=== PATIENT | female | born 2000 | race Caucasian/White ===

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

== ENCOUNTER 2023-02-11 11:12 | Emergency (ER) | payer OTHER ==
[2023-02-11 11:25] VITALS: BP 123/70; PULSE 89; RESP 20; TEMP 98.7; BMI 30.2
[2023-02-11] MEDS ORDERED: ACETAMINOPHEN 325 MG TABLET (FP) PO ONE (12:44)
[2023-02-11] MEDS ORDERED: ACETAMINOPHEN 325 MG TABLET (FP) ONE (12:50)
[2023-02-11 13:26] LABS: BASO % 0.9 % (0-2.0); EOS % 1.1 % (0-4.5); HEMATOCRIT 39.7 % (32.4-45.2); HEMOGLOBIN 13.4 GM/dL (10.7-15.3); LYMPH % 31.7 % (8-40); MCHC 33.8 g/dl (32.0-36.0); MEAN CELL VOLUME 85.8 fl (80-96); MEAN PLT VOLUME 8.9 fl (7.5-11.1); MONO % 7.3 % (3.8-10.2); PLATELET COUNT 228 10^3/uL (134-434); RBC 4.62 M/mm3 (3.60-5.2); RDW 13.6 % (11.6-15.6); WHITE BLOOD COUNT 5.2 K/mm3 (4.0-10.0)
[2023-02-11 13:48] LABS: EPI CELLS >36 /uL (0-25.1); HYALINE CASTS 2 /uL (0-3.1); PH,URINE 5.5 (5.0-8.0); URINE APPEARANCE CLOUDY; URINE BACTERIA 454 /uL (0-1359); URINE BILIRUBIN NEGATIVE (NEGATIVE); URINE COLOR YELLOW; URINE GLUCOSE (UA) NEGATIVE (NEGATIVE); URINE KETONE NEGATIVE (NEGATIVE); URINE LEUK ESTERASE NEGATIVE (NEGATIVE); URINE NITRITE NEGATIVE (NEGATIVE); URINE PROTEIN NEGATIVE (NEGATIVE); URINE RBC 18 /uL (0-23.9); URINE UROBILINOGEN 0.2 mg/dL (0.2-1.0); URINE WBC 37 /uL (0-25.8)
[2023-02-11 14:05] LABS: CHLORIDE 108 mmol/L (98-107); POTASSIUM 4.3 mmol/L (3.5-5.1); SODIUM 138 mmol/L (136-145)
[2023-02-11 14:08] LABS: CALCIUM 9.1 mg/dL (8.5-10.1)
[2023-02-11 14:09] LABS: ALBUMIN 3.6 g/dl (3.4-5.0); ANION GAP 6 MMOL/L (8-16); BLOOD UREA NITROGEN 9.9 mg/dL (7-18); CO2 25 mmol/L (21-32); GLUCOSE,RANDOM 69 mg/dL (74-106)
[2023-02-11 14:12] LABS: CREATININE 0.8 mg/dL (0.55-1.3); SGOT/AST 27 U/L (15-37); SGPT/ALT 32 U/L (13-61)
[2023-02-11 14:13] LABS: BILIRUBIN,TOTAL 0.6 mg/dL (0.2-1)
[2023-02-11 14:14] LABS: TOT PROT 7.4 g/dl (6.4-8.2)
[2023-02-11 14:15] LABS: ALK PHOS 69 U/L (45-117)
== END 2023-02-11 19:04 | disposition home or self-care (01) ==
LOC: JER 11:12
DX: R10.32 Left lower quadrant pain (principal); N64.4 Mastodynia
CPT/HCPCS: 36415; 76830-TC; 80053; 81003; 84702; 85025; 87086; 99284-25

== ENCOUNTER 2023-02-26 17:49 | Emergency (ER) | payer OTHER ==
[2023-02-26 18:07] VITALS: BP 109/68; PULSE 93; RESP 18; TEMP 98.1; BMI 31.8
[2023-02-26 20:51] LABS: EPI CELLS >36 /uL (0-25.1); HYALINE CASTS 2 /uL (0-3.1); PH,URINE 6.5 (5.0-8.0); URINE APPEARANCE CLOUDY; URINE BACTERIA 1511 /uL (0-1359); URINE BILIRUBIN NEGATIVE (NEGATIVE); URINE COLOR YELLOW; URINE GLUCOSE (UA) NEGATIVE (NEGATIVE); URINE KETONE 1+ (NEGATIVE); URINE LEUK ESTERASE 3+ (NEGATIVE); URINE NITRITE NEGATIVE (NEGATIVE); URINE PROTEIN NEGATIVE (NEGATIVE); URINE RBC 24 /uL (0-23.9); URINE UROBILINOGEN 0.2 mg/dL (0.2-1.0); URINE WBC 263 /uL (0-25.8)
== END 2023-02-26 23:59 | disposition home or self-care (01) ==
LOC: JER 17:49
DX: O23.41 Unspecified infection of urinary tract in pregnancy, first trimester (principal); O99.891 Other specified diseases and conditions complicating pregnancy; N83.202 Unspecified ovarian cyst, left side; O26.891 Other specified pregnancy related conditions, first trimester; R10.30 Lower abdominal pain, unspecified; Z3A.01 Less than 8 weeks gestation of pregnancy
CPT/HCPCS: 36415; 76830-TC; 81003; 84703; 87077; 87086; 87491; 87591; 99284-25

== ENCOUNTER 2023-10-24 16:54 | Inpatient (IN) | payer OTHER ==
[2023-10-24 18:46] VITALS: BMI 31.8
[2023-10-24 18:47] LABS: BASO % 0.2 % (0-2.0); HEMATOCRIT 42.7 % (32.4-45.2); HEMOGLOBIN 14.3 GM/dL (10.7-15.3); LYMPH % 10.5 % (8-40); MCH 28.5 pg (25.7-33.7); MCHC 33.6 g/dl (32.0-36.0); MEAN CELL VOLUME 84.8 fl (80-96); MEAN PLT VOLUME 8.3 fl (7.5-11.1); MONO % 3.3 % (3.8-10.2); PLATELET COUNT 212 10^3/uL (134-434); RBC 5.03 M/mm3 (3.60-5.2); WHITE BLOOD COUNT 10.1 K/mm3 (4.0-10.0)
[2023-10-24 18:54] LABS: INR 0.92 (0.83-1.09); PROTHROMBIN TIME (PATIENT) 10.7 SEC (9.7-13.0)
[2023-10-24 18:57] LABS: ACTIVATED PTT 29.6 SECONDS (25.2-36.5)
[2023-10-24] MEDS ORDERED: ELECTROLYTE-148 SOLN 1,000 ML IV SCH (19:00)
[2023-10-24 19:06] LABS: POTASSIUM 3.9 mmol/L (3.5-5.1)
[2023-10-24 19:08] LABS: CALCIUM 9.3 mg/dL (8.5-10.1)
[2023-10-24 19:09] LABS: BLOOD UREA NITROGEN 7.3 mg/dL (7-18)
[2023-10-24] MEDS ORDERED: FENTANYL/BUPIVACAINE/NS/PF - PCEA - 50 ML DISP.SYRIN EP ONE ×2 (19:11→22:46)
[2023-10-24 19:12] LABS: CREATININE 0.6 mg/dL (0.55-1.3)
[2023-10-24] MEDS: FENTANYL/BUPIVACAINE/NS/PF - PCEA - 50 ML DISP.SYRIN EP SCH ×2 (19:40→22:50)
[2023-10-24] MEDS ORDERED: NALOXONE HCL 0.4 MG/ML VIAL IVPUSH PRN (19:52)
[2023-10-24] MEDS ORDERED: OXYTOCIN 30 UNITS in 0.9% NS 30 UNIT/500 ML INFUS.BAG IVPB ONE (23:42)
[2023-10-24] MEDS ORDERED: OXYTOCIN 30 UNITS in 0.9% NS 30 UNIT/500 ML INFUS.BAG IVPB SCH (23:45)
[2023-10-25] MEDS ORDERED: FENTANYL/BUPIVACAINE/NS/PF - PCEA - 50 ML DISP.SYRIN EP ONE (01:22)
[2023-10-25] MEDS: FENTANYL/BUPIVACAINE/NS/PF - PCEA - 50 ML DISP.SYRIN EP SCH (01:40)
[2023-10-25] MEDS ORDERED: LIDOCAINE HCL 1% PRESERVATIVE FREE - 30ML VIAL ONE (02:57)
[2023-10-25] MEDS ORDERED: OXYTOCIN 20 UNITS in 0.9% NS 20 UNIT/1,000 ML INFUS.BAG IV ONE (02:57)
[2023-10-25] MEDS ORDERED: AMPICILLIN SODIUM 2 GM VIAL ONE (04:22)
[2023-10-25] MEDS ORDERED: WITCH HAZEL 50% (TUCKS) 40 PAD/JAR PAD TP PRN (05:17)
[2023-10-25] MEDS ORDERED: METHYLERGONOVINE MALEATE 0.2 MG/1 ML AMP IM ONE (05:17)
[2023-10-25] MEDS ORDERED: BENZOCAINE 20% 57 GM BOTTLE TP PRN (05:17)
[2023-10-25] MEDS ORDERED: METHYLERGONOVINE MALEATE 0.2 MG/1 ML AMP IM PRN (05:17)
[2023-10-25] MEDS ORDERED: ACETAMINOPHEN 325 MG TABLET (FP) PO PRN (05:17)
[2023-10-25] MEDS ORDERED: oxyCODONE HCL 5 MG TABLET PO PRN (05:17)
[2023-10-25] MEDS ORDERED: BENZOCAINE 28 GM HEMORRHOIDAL OINTMENT TP PRN (05:17)
[2023-10-25] MEDS ORDERED: BISACODYL 10 MG SUPP.RECT RC PRN (05:17)
[2023-10-25] MEDS ORDERED: AMPICILLIN - 2 GM in SODIUM CHLORIDE 100 ML IVPB ONE (05:18)
[2023-10-25] MEDS ORDERED: OXYTOCIN 20 UNITS in 0.9% NS 20 UNIT/1,000 ML INFUS.BAG IV SCH (05:30)
[2023-10-25] MEDS ORDERED: IBUPROFEN 600 MG TABLET (FP) PO ONE (06:03)
[2023-10-25] MEDS: IBUPROFEN 600 MG TABLET (FP) PO PRN ×3 (06:05→20:36)
[2023-10-25 06:32] LABS: CORD BASE EXCESS -7.5 mmol/L (0-2); CORD HCO3 20.3 mmHg (20-29); CORD PCO2 48.9 mmHg (30-78); CORD pH 7.236 (7.14-7.44)
[2023-10-25 06:48] LABS: CORD BASE EXCESS -9.5 mmol/L (0-2); CORD HCO3 20.3 mmHg (20-29); CORD PCO2 60.3 mmHg (30-78); CORD pH 7.146 (7.14-7.44)
[2023-10-25] MEDS: DOCUSATE SODIUM 100 MG CAPSULE (FP) PO SCH (09:23)
[2023-10-26] MEDS: IBUPROFEN 600 MG TABLET (FP) PO PRN ×4 (01:06→19:25)
[2023-10-26 08:15] LABS: BASO % 0.5 % (0-2.0); EOS % 0.6 % (0-4.5); HEMATOCRIT 35.7 % (32.4-45.2); HEMOGLOBIN 11.7 GM/dL (10.7-15.3); LYMPH % 19.9 % (8-40); MCH 28.6 pg (25.7-33.7); MCHC 32.8 g/dl (32.0-36.0); MEAN CELL VOLUME 87.1 fl (80-96); MEAN PLT VOLUME 8.3 fl (7.5-11.1); MONO % 5.3 % (3.8-10.2); NEUT % 73.7 % (42.8-82.8); PLATELET COUNT 172 10^3/uL (134-434); RDW 14.1 % (11.6-15.6); WHITE BLOOD COUNT 9.1 K/mm3 (4.0-10.0)
[2023-10-26 09:35] VITALS: RESP 18
[2023-10-26] MEDS: DOCUSATE SODIUM 100 MG CAPSULE (FP) PO SCH (10:01)
[2023-10-26] MEDS ORDERED: SENNOSIDES/DOCUSATE COMBO (SENNA PLUS) TABLET (UD) PO PRN (22:00)
[2023-10-27] MEDS: IBUPROFEN 600 MG TABLET (FP) PO PRN ×2 (00:06→09:18)
[2023-10-27] MEDS: DOCUSATE SODIUM 100 MG CAPSULE (FP) PO SCH (09:18)
[2023-10-27 11:27] VITALS: BP 120/75; PULSE 76; TEMP 98.2
== END 2023-10-27 13:30 | disposition home or self-care (01) | DRG 560 ==
LOC: JDEL 16:54 → JLDR 18:15 → J3W 10-25 08:15
PROVIDERS: ADMIT Obstetrics & Gynecology; ATTEND Obstetrics & Gynecology
PROC: 10E0XZZ Delivery of Products of Conception, External Approach (ICD-10-PCS; principal; 2023-10-25)
PROC: 0W8NXZZ Division of Female Perineum, External Approach (ICD-10-PCS; 2023-10-25)
DX: O80 Encounter for full-term uncomplicated delivery (principal); Z3A.39 39 weeks gestation of pregnancy; Z37.0 Single live birth
CPT/HCPCS: 36415; 36600; 59025; 80048; 82803; 85025; 85610; 85730; 86780; 86850; 86900; 86901

== ENCOUNTER 2023-10-30 00:03 | Emergency (ER) | payer OTHER ==
[2023-10-30 00:17] VITALS: BMI 30.8
[2023-10-30 01:47] LABS: BASO % 0.7 % (0-2.0); EOS % 1.9 % (0-4.5); HEMATOCRIT 36.9 % (32.4-45.2); HEMOGLOBIN 12.2 GM/dL (10.7-15.3); LYMPH % 27.1 % (8-40); MCH 28.9 pg (25.7-33.7); MCHC 33.1 g/dl (32.0-36.0); MEAN CELL VOLUME 87.1 fl (80-96); MEAN PLT VOLUME 7.9 fl (7.5-11.1); MONO % 4.6 % (3.8-10.2); NEUT % 65.7 % (42.8-82.8); PLATELET COUNT 231 10^3/uL (134-434); RBC 4.24 M/mm3 (3.60-5.2); RDW 13.8 % (11.6-15.6); WHITE BLOOD COUNT 6.5 K/mm3 (4.0-10.0)
[2023-10-30 01:53] LABS: POTASSIUM 4.6 mmol/L (3.5-5.1)
[2023-10-30 01:55] LABS: CALCIUM 9.1 mg/dL (8.5-10.1)
[2023-10-30 01:56] LABS: ALBUMIN 2.9 g/dl (3.4-5.0); BLOOD UREA NITROGEN 6.8 mg/dL (7-18)
[2023-10-30 01:59] LABS: CREATININE 0.6 mg/dL (0.55-1.3)
[2023-10-30 02:00] LABS: BILIRUBIN,TOTAL 0.4 mg/dL (0.2-1); TOT PROT 6.7 g/dl (6.4-8.2)
[2023-10-30] MEDS ORDERED: morphine SULFATE 4 MG/ML VIAL ONE (02:42)
[2023-10-30] MEDS: morphine CARPU-JECT 4 MG/1 ML DISP.SYRIN IVPUSH ONE (03:04)
[2023-10-30 04:33] LABS: INR 0.97 (0.83-1.09); PROTHROMBIN TIME (PATIENT) 11.3 SEC (9.7-13.0)
[2023-10-30 04:36] LABS: ACTIVATED PTT 29.3 SECONDS (25.2-36.5)
[2023-10-30] MEDS: SODIUM CHLORIDE 0.9% 500 ML INFUS.BAG IV ONE (05:27)
[2023-10-30 06:26] VITALS: BP 107/56; PULSE 87; RESP 17; TEMP 97.9
[2023-10-30 07:01] LABS: PH,URINE 6.5 (5.0-8.0); URINE APPEARANCE CLEAR; URINE BILIRUBIN NEGATIVE (NEGATIVE); URINE COLOR YELLOW; URINE GLUCOSE (UA) NEGATIVE (NEGATIVE); URINE KETONE TRACE (NEGATIVE); URINE LEUK ESTERASE NEGATIVE (NEGATIVE); URINE NITRITE NEGATIVE (NEGATIVE); URINE PROTEIN NEGATIVE (NEGATIVE); URINE UROBILINOGEN 0.2 mg/dL (0.2-1.0)
[2023-10-30] MEDS ORDERED: IBUPROFEN 400 MG TABLET (FP) PO ONE (07:41)
[2023-10-30] MEDS ORDERED: AMOX TR/POT CLAV 875MG/125MG TABLETS (FP) ONE (07:41)
[2023-10-30] MEDS: AMOX TR/POT CLAV 875MG/125MG TABLETS (FP) PO ONE (08:11)
[2023-10-30] MEDS: IBUPROFEN 400 MG TABLET (FP) PO ONE (08:11)
== END 2023-10-30 09:30 | disposition home or self-care (01) ==
LOC: JER 00:03
PROC: 3E033GC Introduction of Other Therapeutic Substance into Peripheral Vein, Percutaneous Approach (ICD-10-PCS; principal; 2023-10-30)
DX: R10.2 Pelvic and perineal pain (principal); R33.9 Retention of urine, unspecified; R10.30 Lower abdominal pain, unspecified
CPT/HCPCS: 36415; 74177-TC; 80053; 81003; 85025; 85610; 85730; 86850; 86900; 86901; 87040; 87070; 87076; 87086; 87186; 87205; 99285-25

== ENCOUNTER 2023-10-30 21:35 | Emergency (ER) | payer OTHER ==
[2023-10-30 21:42] VITALS: BP 121/79; PULSE 108; RESP 17; TEMP 98.3; BMI 30.8
== END 2023-10-30 22:25 | disposition home or self-care (01) ==
LOC: JER 21:35
DX: Z48.01 Encounter for change or removal of surgical wound dressing (principal)
CPT/HCPCS: 99281-25